=== PATIENT | male | born 1965 | race Caucasian/White ===

== ENCOUNTER 2023-01-24 15:43 | Outpatient (CLI) | payer OTHER, SELFPAY ==
--- NOTE | 2023-01-24 14:05 | DI.RAD_ITS ---
Exam(s) XR SHOULDER LT COMPLETE 2+V EXAM: XR SHOULDER LT COMPLETE 2+V CLINICAL HISTORY: Pain, rotator cuff tear. TECHNIQUE: 2D digital imaging was performed. Three views. COMPARISON: CR XR SHOULDER MIN 2V LT from 01/28/2022 FINDINGS: BONES: No acute fracture is present. No bony destructive lesion is seen. JOINTS: No dislocation present. No significant spurring at the AC joint. Severe narrowing of the gl enohumeral joint. Mild periarticular spurring greater sclerosis of the inferior glenoid. Findings h ave progressed since the previous exam. SOFT TISSUE: Normal. IMPRESSION: Severe degenerative changes of the glenohumeral joint DATA REPOSITORY: RADIATION DOSE DELIVERED:
== END 2023-01-24 15:44 | disposition home or self-care (01) ==
LOC: DIORS 15:44
PROVIDERS: PCP Neuromusculoskeletal Medicine & OMM; Visit Provider Physician Assistant
DX: M19.012 Primary osteoarthritis, left shoulder (principal)
CPT/HCPCS: 73030

== ENCOUNTER → 2023-02-22 00:45 | Outpatient (CLI) | payer OTHER, SELFPAY ==
--- NOTE | 2023-02-22 14:04 | DI.MRI_ITS ---
Exam(s) MR UPPER JOINT LT WO EXAM: MR UPPER JOINT LT WO CLINICAL HISTORY: pain M75.102 ROTATOR CUFF TEAR LT SHOULDER TECHNIQUE: Multiplanar multisequence MRI of the shoulder was performed. COMPARISON: MR MR SHOULDER LT WO CONTRAST from 03/08/2022 CR XR SHOULDER LT COMPLETE 2+V from 01/24/2023 FINDINGS: MARROW:There is no evidence of fracture, Hill-Sachs deformity, nor ominous osseous lesions. However, there are advanced degenerative changes in the glenohumeral joint with significant joint space narrow ing and loss of articular cartilage and there is a small saldana type osteophyte on the inferior articu lar surface of the humeral head. There also multiple confluent small degenerative subarticular cyst in the articular surface of the humeral head with surrounding edema, not evident on the prior MRI sca n of 1 year ago. There is also degenerative subarticular cysts and bone edema again evident within t he osseous glenoid, more so than previous. ROTATOR CUFF MECHANISM: AC JOINT/ACROMIUM: There are only mild degenerative changes in the AC joint. No prominent downgoing osteophytes.. There is no evidence of os acromiale. Supraspinatus: Some tendinitis signal. No high-grade tear. No atrophy. Infraspinatus: Some tendinitis signal. No high-grade tear. No atrophy. Teres Minor: Intact. No evidence of tear nor muscle atrophy. Subscapularis/anterior cuff: There is some tendinitis signal add partial tearing of the superior mult ipennate insertional tendon fibers. BICEPS TENDON: Its normal position within the intertubercular groove but exhibits significant abnorma l intrasubstance tear within the intra-articular aspect of the tendon consistent with intrasubstance tearing. However, maintains attachment to the anterosuperior labrum. No tenosynovitis. LABRUM: Diffuse surface blunting-tearing at all levels of the labrum evident. No evidence of paralab ral cyst. GLENOHUMERAL JOINT: Degenerative changes as described above which have progressed from the prior outs saran MRI of 2021. Saldana-type osteophyte. Degenerative subarticular cysts and bone edema on both sides of the glenohumeral joint now evident. More so than previous no evidence of capsular tear. The inf erior glenohumeral ligament is intact. IMPRESSION: 1. Tendinopathy and partial tearing of the subscapularis tendon again noted 2. Tendinopathy and partial tearing of the intra-articular aspect of the long head biceps tendon. Al so diffuse surface tearing of the entire glenoid labrum. 3. Further increase in the amount of osteoarthritic degenerative changes in the glenohumeral joint, a s described above, now severe. 4. Tendinitis but no tears of the supra and infraspinatus. Teres minor remains intact. DATA REPOSITORY:
== END ==
PROVIDERS: PCP Neuromusculoskeletal Medicine & OMM; Visit Provider Student in an Organized Health Care Education/Training Program
DX: M75.111 Incomplete rotator cuff tear or rupture of right shoulder, not specified as traumatic (principal); M25.511 Pain in right shoulder
CPT/HCPCS: 73221

== ENCOUNTER → 2023-04-05 01:56 | Outpatient (CLI) | payer OTHER, SELFPAY ==
--- NOTE | 2023-04-05 08:15 | DI.RAD_ITS ---
Exam(s) RF JOINT INJ. FLUORO GUID RAD EXAM: RF JOINT INJ. FLUORO GUID RAD CLINICAL HISTORY: L SHOULDER PAIN,arthritis lt glenohumeral joint, fluoro guided injection,M1. The Patient has had persistent left shoulder pain. Noninvasive measures have been tried. To serve as b oth diagnostic and therapeutic, an injection under fluoroscopy was recommended. The risks of the pro cedure were discussed with their Orthopedic provider and the patient elected to proceed. TECHNIQUE: 2D and realtime digital imaging was performed. CONTRAST MATERIAL: Water soluble contrast was utilized. COMPARISON: No exams were available for comparison FINDINGS: The Patient was greeted in the fluoroscopy room. The correct side was identified and the consent was reviewed with the patient and was signed. The patient was properly positioned on the fluoroscopy ta ble. The left shoulder was then prepped with Chloraprep and draped. The left shoulder injection sta rting point was identified by the bony landmarks and fluoroscopy. The skin and soft tissue in the tr act of the injection was anesthetized with 1% Lidocaine. A spinal needle was then inserted into the left shoulder joint at the level of the glenohumeral joint under fluoroscopic guidance. A small amou nt of Omnipaque solution was injected to confirm intraarticular placement. Once confirmed, the left shoulder was injected with 5cc of a solution containing 0.5% Bupivaine and 80 mg of Depo-Medrol. A b andaid was placed on the injection site. The patient tolerated the procedure well and left the depar tment in good condition. IMPRESSION: Successful left shoulder injection. RADIATION DOSE DELIVERED: Ka,r=4.77 mGy
[2023-04-05] MEDS: methylPREDNISolone ACETATE 80 MG/ML VIAL IM (14:52)
[2023-04-05] MEDS: Omnipaque 300 MG/ML 10 ML BTL IJ (14:53)
[2023-04-05] MEDS: Bupivacaine 0.5% Pres-Free 10 ML VIAL IJ (14:54)
== END ==
PROVIDERS: PCP Neuromusculoskeletal Medicine & OMM; Visit Provider Student in an Organized Health Care Education/Training Program
DX: M19.012 Primary osteoarthritis, left shoulder (principal); M25.512 Pain in left shoulder
CPT/HCPCS: 20610; 77002; J1040

== ENCOUNTER 2023-11-29 02:13 | Outpatient (CLI) | payer BC, SELFPAY ==
--- NOTE | 2023-11-29 | DI.CT_ITS ---
Exam(s) CT ABDOMEN PELVIS W EXAM: CT ABDOMEN PELVIS W CLINICAL HISTORY: R10.9 Unspecified abd pain. TECHNIQUE: Imaging Protocol: Axial computed tomography images with coronal and sagittal reformatted images were created and reviewed CONTRAST MATERIAL: Intravenous: Omnipaque-350 100cc Oral: Yes. Oral contrast was also administered for bowel opacification. COMPARISON: No exams were available for comparison FINDINGS: VISUALIZED LUNG BASES: No nodules nor pleural effusions evident. ABDOMEN: There is no ascites. LIVER: There are no focal hepatic lesions evident. No dilated intrahepatic ducts. GALLBLADDER/BILIARY: No obvious gallbladder pathology. CBD is not dilated. PANCREAS: No evidence of pancreatic mass nor dilatation of the pancreatic duct. SPLEEN: Spleen is not enlarged. No obvious intrasplenic lesions. Splenic and portal veins are paten t. ADRENALS: There are no significant adrenal masses. KIDNEYS:No cysts evident. No solid renal masses. No calculi nor hydronephrosis.. ABDOMINAL AORTA: Abdominal aorta is not enlarged. LYMPH NODES:There is no retroperitoneal nor paraaortic adenopathy. ABDOMINAL WALL: No evidence of significant anterior abdominal wall nor inguinal hernia. GI: There is no evidence of bowel obstruction, free air, nor abscess. PELVIS: GI: No evidence of appendicitis.No evidence of significant sigmoid diverticular disease. LYMPH NODES: There is no intrapelvic nor inguinal adenopathy. REPRODUCTIVE: Mildly enlarged and hypodense prostate. No obturator adenopathy evident. URINARY BLADDER: No calculi nor obvious masses evident OSSEOUS: No fractures and no significant osseous lesions. IMPRESSION: 1. No significant acute findings in the abdomen and pelvis. RADIATION DOSE DELIVERED: Total DLP DATA REPOSITORY: All CT scans at this facility are submitted to the National Radiology Data Registry (NRDR) Dose Index Registry (DIR) with the [employer] ([employer]). RADIATION OPTIMIZATION: All CT scans at this facility use at least one of these dose optimization te chniques: automated exposure control; mA and/or kV adjustment per patient size (includes targeted exa ms where dose is matched to clinical indication); or iterative reconstruction.
[2023-11-29 13:45] LABS: Estimated GFR 87.24 (mL/min/1.73m2)
[2023-11-29] MEDS: Barium Sulfate 2% W/V-Creamy Vanilla Smoothie 450 ML BTL PO ×2 (15:10→15:11)
[2023-11-29] MEDS: Omnipaque 350 MG/ML 100 ML BTL IJ (15:28)
[2023-11-29] MEDS: Normal Saline - Diluent 50 ML VIAL IJ (15:29)
== END 2023-11-29 02:33 ==
LOC: DI 02:13
PROVIDERS: PCP Neuromusculoskeletal Medicine & OMM; Visit Provider Family Medicine
DX: R10.9 Unspecified abdominal pain (principal)
CPT/HCPCS: 74177; 82565; J3490

== ENCOUNTER 2023-11-29 02:15 | Outpatient (CLI) | payer BC, SELFPAY ==
--- NOTE | 2023-11-29 09:00 | DI.RAD_ITS ---
Exam(s) RF JOINT INJECTION FLUORO GUID EXAM: RF JOINT INJECTION FLUORO GUID CLINICAL HISTORY: Rotator cuff tear, left,ARTHRITIS,FLUORO GUIDED INJECTION,M19.012,M75.102. The William barrientos has had persistent left shoulder pain. Noninvasive measures have been tried. To serve as both diagnostic and therapeutic, an injection under fluoroscopy was recommended. The risks of the proced ure were discussed with their Orthopedic provider and the patient elected to proceed. TECHNIQUE: 2D and realtime digital imaging was performed. CONTRAST MATERIAL: Water soluble contrast was utilized. COMPARISON: No exams were available for comparison FINDINGS: The Patient was greeted in the fluoroscopy room. The correct side was identified and the consent was reviewed with the patient and was signed. The patient was properly positioned on the fluoroscopy ta ble. The left shoulderwas then prepped with Chloraprep and draped. The left shoulder injection star ting point was identified by the bony landmarks and fluoroscopy. The skin and soft tissue in the tra ct of the injection was anesthetized with 1% Lidocaine. A spinal needle was then inserted into the l eft shoulder joint at the level of the glenohumeral joint under fluoroscopic guidance. A small amoun t of Omnipaque solution was injected to confirm intraarticular placement. Once confirmed, the left s houlder was injected with 5cc of a solution containing 0.5% Bupivaine and 80 mg of Depo-Medrol. A ba ndaid was placed on the injection site. The patient tolerated the procedure well and left the depart ment in good condition. IMPRESSION: Successful left shoulder injection. RADIATION DOSE DELIVERED: Ka,r=11.9 mGy
[2023-11-29] MEDS: Normal Saline - Diluent 50 ML VIAL IJ (14:51)
[2023-11-29] MEDS: Omnipaque 300 MG/ML 10 ML BTL 5 ML IJ (14:52)
[2023-11-29] MEDS: Bupivacaine 0.5% Pres-Free 10 ML VIAL IJ (14:53)
[2023-11-29] MEDS: methylPREDNISolone ACETATE 80 MG/ML VIAL IM (14:53)
== END 2023-11-29 02:35 ==
PROVIDERS: PCP Neuromusculoskeletal Medicine & OMM; Visit Provider Student in an Organized Health Care Education/Training Program
DX: M75.102 Unspecified rotator cuff tear or rupture of left shoulder, not specified as traumatic (principal); M19.012 Primary osteoarthritis, left shoulder
CPT/HCPCS: 20610; 77001; 77002; J0665; J1010

== ENCOUNTER 2024-10-16 01:53 | Outpatient (CLI) | payer BC, SELFPAY ==
[2024-10-16] MEDS: Lidocaine 1% Pres-Free 30 ML VIAL IJ (09:17)
[2024-10-16] MEDS: methylPREDNISolone ACETATE 80 MG/ML VIAL IM (09:18)
[2024-10-16] MEDS: Omnipaque 300 MG/ML 10 ML BTL IJ (09:19)
--- NOTE | 2024-10-16 09:20 | DI.RAD_ITS ---
Exam(s) RF JOINT INJ. FLUORO GUID RAD EXAM: RF JOINT INJ. FLUORO GUID RAD CLINICAL HISTORY: L SHOULDER PAIN,FLUORO GUIDED INJECTION,ARTHRITIS LT GLENOHUMERAL JOINT. TECHNIQUE: 2D and realtime digital imaging was performed. CONTRAST MATERIAL: Intra-articular Omnipaque 300-2 cc COMPARISON: Prior x-rays and images of similar procedure reviewed. FINDINGS: This fluoroscopic guided left shoulder therapeutic steroid injection was performed at the request of the referring orthopedic surgeon. This patient has had prior injections of the same shoulder, most recently on 11/29/2023. Patient was consented prior to this procedure. The patient was placed in supine position on the fluoroscopy table. Using sterile technique and adequate skin-subcutaneous anesthesia, fluoroscopic guidance was used to advance a 22 gauge spinal needle into the glenohumeral joint using an anterior approach. Intra-articular position was confirmed with injection of 2 cc Omnipaque 300. Thereafter a sterile solution of 80 milligrams Depo-Medrol and 4 cc of 0.5 percent bupivacaine was injected into the joint space. Needle was removed. Band-Aid was applied. Patient tolerated this procedure well and there were no intraprocedural complications. IMPRESSION: Successful left shoulder glenohumeral joint steroid injection using fluoroscopic guidance. RADIATION DOSE DELIVERED: Ka,r=3.59mGy
[2024-10-16] MEDS: Bupivacaine 0.5% Pres-Free 10 ML VIAL 5 ML IJ (09:21)
== END 2024-10-16 02:13 ==
LOC: DI 01:53
PROVIDERS: PCP Neuromusculoskeletal Medicine & OMM; Visit Provider Student in an Organized Health Care Education/Training Program
DX: M19.012 Primary osteoarthritis, left shoulder (principal); M25.512 Pain in left shoulder
CPT/HCPCS: 20610; 77002; J0665; J1010